=== PATIENT | female | born 1970 | race Two or more races ===

== ENCOUNTER 2017-08-15 15:18 | Outpatient (CLI) | payer OTHER | END 2017-08-15 15:32 | disposition home or self-care (01) | LOC: RAD 15:18 | DX: I10 Essential (primary) hypertension (principal); Z01.810 Encounter for preprocedural cardiovascular examination ==

== ENCOUNTER 2017-10-09 09:03 | Outpatient (CLI) | payer OTHER | END 2017-10-09 15:55 | disposition home or self-care (01) | LOC: MRI 09:03 | DX: M54.17 Radiculopathy, lumbosacral region (principal) | CPT/HCPCS: 72148 ==

== ENCOUNTER 2018-08-03 11:45 | Emergency (ER) | payer OTHER ==
[~2018-08-03] VITALS: Ht 165.1 cm; Wt 65.8 kg
== END 2018-08-03 18:52 | disposition home or self-care (01) ==
LOC: ER 11:45
DX: N20.1 Calculus of ureter (principal)